=== PATIENT | male | born 1965 | race Caucasian/White ===

== ENCOUNTER → 2018-11-05 | Outpatient (REF) | END | disposition home or self-care (01) | DRG 948 | LOC: LAB 07:43 | PROVIDERS: ATTEND Internal Medicine | DX: R53.83 Other fatigue (principal); Z00.00 Encounter for general adult medical examination without abnormal findings; Z12.5 Encounter for screening for malignant neoplasm of prostate; E78.49 Other hyperlipidemia; Z79.899 Other long term (current) drug therapy ==